=== PATIENT | female | born 1965 | race Caucasian/White ===

== ENCOUNTER 2018-01-03 23:18 | Emergency (ER) | payer SELFPAY ==
[~2018-01-03] VITALS: Ht 167.6 cm; Wt 80.0 kg
[~2018-01-03 23:18] MED LIST: PRIM0.224 INH
[2018-01-03 23:40] VITALS: BP 153/77; PULSE 98; RESP 18; TEMP 98.1; O2SAT 97
--- NOTE | 2018-01-04 00:12 | PD ---
HPI Chief Complaint: Psychiatric Symptoms Time Seen by Provider: 00:02 Travel History International Travel<30 days: No Contact w/Intl Traveler<30days: No Traveled to known affect area: No History of Present Illness HPI 52-year-old female with history of depression presents emergency department voluntarily for psychiatric evaluation. Patient states she went to [facility] in [facility]. She was transferred to [facility] in [facility] due to them having a bed. She states she has significant COPD and needs breathing treatments every 2-3 hours. This was out of [facility] scope of medical practice so they sent her to the emergency department this evening. Patient states she is not suicidal or homicidal. She simply wants to speak to somebody to get restarted on her antidepressant medication. She states she has been under a lot of stress lately. She is about to lose her house. She has no acute medical needs. She has no other symptoms to report. PFSH Past Medical History Asthma: Yes (otc primatene mist) Autoimmune Disease: Yes (lupus) Depression: Yes COPD: Yes Diminished Hearing: No Diverticulitis: Yes Hypertension: Yes ?: Not LMP: menpause Past Surgical History Section: Yes Social History Alcohol Use: Yes (one time per week) Tobacco Use: Yes (one pack per day) Substance Use: Yes Allergies-Medications (Allergen,Severity, Reaction): Coded Allergies: No Known Allergies (Unverified Adverse Reaction, Unknown, 01/03/18) Reported Meds & Prescriptions Reported Meds & Active Scripts Active Reported Primatene Mist (Epinephrine) 0.22 Mg/A Aer 0.22 Mg INH PRN Review of Systems Except as stated in HPI: all other systems reviewed are Neg Physical Exam Narrative GENERAL: Well-nourished female patient in no acute distress SKIN: Focused skin assessment warm/dry. HEAD: Atraumatic. Normocephalic. EYES: Pupils equal and round. No scleral icterus. No injection or drainage. ENT: No nasal bleeding or discharge. Mucous membranes pink and moist. NECK: Trachea midline. No JVD. CARDIOVASCULAR: Regular rate and rhythm. No murmur appreciated. RESPIRATORY: No accessory muscle use. Coarse, diminished to auscultation. Breath sounds equal bilaterally. GASTROINTESTINAL: Abdomen soft, non-tender, nondistended. Hepatic and splenic margins not palpable. MUSCULOSKELETAL: No obvious deformities. No clubbing. No cyanosis. No edema. NEUROLOGICAL: Awake and alert. No obvious cranial nerve deficits. Motor grossly within normal limits. Normal speech. Data Data Last Documented VS Vital Signs Date Time Temp Pulse Resp B/P (MAP) Pulse Ox O2 Delivery O2 Flow Rate FiO2 01/03/18 23:40 98.1 98 18 153/77 (102) 97 Orders Orders Psych Screen (01/04/18 00:11) Ed Discharge Order (01/04/18 00:58) MDM Medical Decision Making Medical Screen Exam Complete: Yes Emergency Medical Condition: Yes Medical Record Reviewed: Yes Differential Diagnosis Mood disorder versus personality disorder versus adjustment reaction disorder Narrative Course 52-year-old female presents emergency department as a transfer from [facility] due to her COPD being out of their scope of medical practice. Patient adamantly denies suicidal homicidal ideations. She states she simply wants to get restarted on an antidepressant. Patient's daughter is willing to come and pick her up. There is contract for safety. She agrees to return immediately with acute worsening symptoms. Diagnosis Primary Impression: Depression Qualified Codes: F32.9 - Major depressive disorder, single episode, unspecified Referrals: Primary Care Physician [facility] Patient Instructions: Depression (ED), General Instructions Additional Instructions: Follow-up with a primary care provider Return immediately with acute worsening symptoms Med/Other Pt SpecificInfo: No Change to Meds Disposition: 01 DISCHARGE HOME Condition: Stable MeenakshiJoseYaquelinannie KULKARNI Jan 04, 2018 00:12
== END 2018-01-04 01:05 | disposition home or self-care (01) ==
LOC: NEPD 23:18
DX: F32.9 Major depressive disorder, single episode, unspecified (principal); J44.9 Chronic obstructive pulmonary disease, unspecified; M32.9 Systemic lupus erythematosus, unspecified; J45.909 Unspecified asthma, uncomplicated; I10 Essential (primary) hypertension; F17.200 Nicotine dependence, unspecified, uncomplicated; Z87.19 Personal history of other diseases of the digestive system
CPT/HCPCS: 99281